=== PATIENT | male | born 1995 | race African-American/Black ===

== ENCOUNTER 2023-11-16 08:08 | Emergency (ER) | payer OTHER ==
[~2023-11-16] VITALS: Ht 180.3 cm; Wt 61.4 kg
[2023-11-16 08:38] VITALS: BP 124/62; PULSE 84; RESP 14; TEMP 98.6; O2SAT 98
== END 2023-11-16 08:40 | disposition home or self-care (01) ==
LOC: ER 08:09
DX: S93.402A Sprain of unspecified ligament of left ankle, initial encounter (principal); X58.XXXA Exposure to other specified factors, initial encounter; Y93.89 Activity, other specified; Y92.89 Other specified places as the place of occurrence of the external cause; Y99.8 Other external cause status
CPT/HCPCS: 73610; 99284